=== PATIENT | female | born 1990 | race Caucasian/White ===

== ENCOUNTER 2022-07-23 12:36 | Inpatient (IN) ==
[2022-07-23 13:12] LABS: Appearance Urine Cloudy (Clear); Bacteria Urine Automated 1+ (Negative); Bilirubin Urine 1+ (Negative); Blood Urine Negative (Negative); Color Urine Dark Yellow; Epithelial Cell Urine Auto >30 /lpf (0-5); Glucose Urine UA Negative (Negative); Ketones Urine Trace (Negative); Leukocyte Esterase Urine Trace (Negative); Nitrite Urine Negative (Negative); Protein Urine 1+ (Negative); RBC Urine Automated 0-4 /hpf (0-4); Specific Gravity Urine 1.032 (1.000-1.030); Urobilinogen Urine Negative (Negative)
[2022-07-23] MEDS ORDERED: SODIUM CHLORIDE 0.9% 1000ML 1,000 ML IV ONE (13:56)
[2022-07-23] MEDS ORDERED: ONDANSETRON INJ 2 MG/ML 2 ML VIAL IV STA (13:56)
[2022-07-23] MEDS ORDERED: KETOROLAC TROMETHAMINE 15 MG/ML VIAL IV STA (13:56)
[2022-07-23] MEDS ORDERED: MoRPHine SULFATE 10 MG/ML CARP/VIAL IV STA (13:56)
--- NOTE | 2022-07-23 14:00 | Emergency Department Note ---
Impression & Plan Diffuse abdominal pain, Enteritis, Anemia ED Provider Note NAME: CANDELARIO PEREIRA AGE: 32 SEX: F : 1990 ARRIVES VIA: Walk-In INFORMANT: [Patient][boyfriend] ED PROVIDER(S): [Nadeem Adair MD] CHIEF COMPLAINT: Abdominal pain HISTORY OF PRESENT ILLNESS: The patient is a 32-year-old female presents with 3 days of constant diffuse abdominal pain. The pain at times is a 10/10. The pain worsens with movement. She has had nausea, no vomiting. No diarrhea or vaginal complaints, no urinary complaints, no fever. Patient does have a history of endometriosis. The patient had some pain a week ago that resolved spontaneously, this time, the pain will not seem to go away. She has been using ibuprofen for discomfort. PMHx/PSHx: See Below SOCIAL HISTORY: See Below. PHYSICAL EXAM: GENERAL: Patient is in mild distress from pain. HEENT: No acute trauma, normocephalic atraumatic, mucous membranes moist, no nasal congestion. NECK: No stridor, no adenopathy, no meningismus, trachea is midline. LUNGS: Clear to auscultation bilaterally, no wheeze, no rhonchi, breath sounds equal. HEART: Without murmurs gallops or rubs, regular rate and rhythm. ABDOMEN: Soft but diffusely significantly tender. No distention. EXTREMITIES: No cyanosis or edema, full range of motion of all the joints without pain or difficulty, no signs for acute trauma. NEUROLOGIC: Oriented x 3, no acute motor or sensory deficits, no focal weakness. SKIN: No rash, no jaundice, no diaphoresis. DIFFERENTIAL DIAGNOSIS: Appendicitis, ovarian cyst, endometriosis flare, PID, ovarian torsion, pyelonephritis, UTI, diverticulitis, obstruction, mesenteric ischemia, aortic pathology, inflammatory bowel disease, renal colic, PUD, pancreatitis, biliary pathology, hernia, constipation, as well as other pathologies. EMERGENCY DEPARTMENT COURSE/PROCEDURES: Prior/Outside records reviewed: None MEDICAL DECISION MAKING: There is no leukocytosis. The patient is anemic, no reported rectal bleeding. No old hemoglobin values available for review. There is a normal platelet count. No renal failure or significant electrolyte abnormality. No concerning liver enzyme elevation. No pancreatitis. testing was negative. Urinalysis showed some contamination, no obvious infection. COVID test returned negative. Abdominal and pelvis CT showed enteritis and small bowel inflammation, no bowel obstruction. There was stool seen within the small bowel. On exam, the patient was tearful and quite tender diffusely about the abdomen. She was not febrile. She was not truly toxic. Patient received IV saline, IV morphine and IV Zofran. She was given IV Toradol. The patient does feel improved. Given the discomfort on exam, given the findings on CT imaging, I do think a hospital stay is warranted. I spoke with the patient, I talked to case management, the on-call hospitalist was consulted. Further work-up for this enteritis is needed inpatient. DISPOSITION: Patient's presentation warrants hospital admission. Past Med/Surg History Medical History Endometriosis Opioid dependence Tobacco abuse Surgical History (Updated 07/23/22 @ 17:15 by Pema Crandall PA-C) S/P laparoscopic procedure Fulguration oviducts bilateral 11/22/21 Pt reports hx of 6 lap diagnostic surgeries regarding endometriosis Family History (Updated 07/23/22 @ 17:15 by Pema Crandall PA-C) Sister Cancer Cervical carcinoma Mother Heart disease CAD, multiple stents Social History Smoking Status: Current every day smoker Tobacco Type: Cigarettes packs per day: 1; Hx Alcohol Use: Yes Hx Substance Use: Yes Prescribed Medications: Painkillers Prescribed Med ications Comment: Percocet Preferred Language: Russian Feels Safe at Home: Yes Allergies Allergies Allergy/AdvReac Type Severity Reaction Status Date / Time No Known Allergies Allergy Verified 07/23/22 17:20 Home Meds Home Medications Medication Instructions Recorded Confirmed acetaminophen 500 mg tablet 1,500 mg PO Q6H PRN Pain 07/23/22 07/23/22 (Tylenol Extra Strength) biotin 1 mg tablet 1 mg PO DAILY 07/23/22 07/23/22 buprenorphine HCl 8 mg sublingual 8 mg sublingual DAILY 07/23/22 07/23/22 tablet ibuprofen 600 mg tablet 600 mg PO BID PRN Pain 07/23/22 07/23/22 Results & Data (ED) Vital Signs Vital Signs - 24 hr 07/23/22 12:39 07/23/22 14:26 Temperature 36.9 C Temperature Source Temporal Artery Scan Pulse Rate 87 Pulse Rate [Right Finger] 57 L Pulse Rhythm Regular Pulse Rhythm [Right Finger] Regular Pulse Strength [Right Finger] Normal Respiratory Rate 18 18 Respiratory Effort / Characteristics Non-Labored Spontaneous Non-Labored Spontaneous Respiratory Depth Normal Normal Respiratory Pattern Regular Regular Blood Pressure 134/66 Blood Pressure [Left Arm] 142/72 H Blood Pressure Mean 88 Blood Pressure Mean [Left Arm] 95 Blood Pressure Position Sitting Blood Pressure Position [Left Arm] Sitting Pulse Oximetry 100 98 Oxygen Delivery Method Room Air Room Air Sepsis Recent Fever Within 48 Hours No Sepsis New/Unexplained Change in Mental Status No Sepsis Action Taken by Nursing No Action Required Home Medications Current Medication List: was personally reviewed by me Laboratory Data Attestation: I reviewed the patient's lab results. Result diagrams: 07/23/22 14:26 07/23/22 14:26 Lab Results 07/23/22 07/23/22 07/23/22 Range/Units 12:55 14:26 14:26 WBC 7.49 (4.8-10.8) K/ul RBC 3.76 L (3.93-5.22) M/uL Hgb 9.4 L (12.0-16.0) g/dl Hct 30.3 L (34.1-44.9) % MCV 80.6 (80.0-100.0) fL MCH 25.0 (25.0-34.0) pg MCHC 31.0 L (32.0-36.0) g/dL RDW Std Deviation 45.0 (36.4-46.3) fL RDW Coeff of Kody 15.2 H (11.5-14.5) % Plt Count 218 (130-400) K/uL MPV 10.3 (9.4-12.3) fL Immature Gran % (Auto) 0.4 % Neut % (Auto) 75.4 % Lymph % (Auto) 16.4 % Leake % (Auto) 5.1 % Eos % (Auto) 2.3 % Baso % (Auto) 0.4 % Neut # (Auto) 5.65 (1.4-6.5) K/uL Lymph # (Auto) 1.23 (1.2-3.4) K/uL Leake # (Auto) 0.38 (0.24-0.82) K/uL Eos # (Auto) 0.17 (0-0.50) K/uL Baso # (Auto) 0.03 (0-0.2) K/uL Immature Gran # (Auto) 0.03 H (0.00-0.02) K/uL Sodium 136 (136-145) mmol/L Potassium 4.4 (3.5-5.1) mmol/L Chloride 105 (98-107) mmol/L Carbon Dioxide 27 (21-32) mmol/L Anion Gap 4 (3-11) BUN 8 (6-23) mg/dl Creatinine 0.52 L (0.6-1.2) mg/dl Est Cr Clr Drug Dosing 124.0 ml/min Est GFR ( Amer) 147.6 ml/min Est GFR (Non-Af Amer) 127.3 ml/min BUN/Creatinine Ratio 15.4 (10-20) Glucose 98 (70-99(Fasting)) mg/dl Calcium 8.3 L (8.5-10.1) mg/dl Total Bilirubin 0.3 (0.2-1.0) mg/dl AST 19 (13-39) U/L ALT 17 (7-52) U/L Alkaline Phosphatase 62 (34-104) U/L Total Protein 6.3 (6.0-8.3) gm/dl Albumin 3.5 (3.4-5.0) gm/dl Globulin 2.8 (2.5-4.0) gm/dl Albumin/Globulin Ratio 1.3 (0.9-2) Lipase 9 L (11-82) U/L HCG, Qual (Negative) Urine Color Dark Yellow Urine Appearance Cloudy A (Clear) Urine pH 6.0 (4.5-7.5) Ur Specific [place] 1.032 H (1.000-1.030) Urine Protein 1+ H (Negative) Urine Glucose (UA) Negative (Negative) Urine Ketones Trace H (Negative) Urine Blood Negative (Negative) Urine Nitrite Negative (Negative) Urine Bilirubin 1+ H (Negative) Urine Urobilinogen Negative (Negative) Ur Leukocyte Esterase Trace H (Negative) Urine WBC (Auto) 5-10 H (0-5) /hpf Urine RBC (Auto) 0-4 (0-4) /hpf U Hyaline Cast (Auto) 1-5 (0-5) /lpf U Epithel Cells (Auto) >30 H (0-5) /lpf Urine Bacteria (Auto) 1+ H (Negative) Ur Renal Epithelial Cell Not Reportable SARS-CoV-2, RNA, NAAT (NEGATIVE) 07/23/22 07/23/22 Range/Units 14:26 17:15 WBC (4.8-10.8) K/ul RBC (3.93-5.22) M/uL Hgb (12.0-16.0) g/dl Hct (34.1-44.9) % MCV (80.0-100.0) fL MCH (25.0-34.0) pg MCHC (32.0-36.0) g/dL RDW Std Deviation (36.4-46.3) fL RDW Coeff of Kody (11.5-14.5) % Plt Count (130-400) K/uL MPV (9.4-12.3) fL Immature Gran % (Auto) % Neut % (Auto) % Lymph % (Auto) % Leake % (Auto) % Eos % (Auto) % Baso % (Auto) % Neut # (Auto) (1.4-6.5) K/uL Lymph # (Auto) (1.2-3.4) K/uL Leake # (Auto) (0.24-0.82) K/uL Eos # (Auto) (0-0.50) K/uL Baso # (Auto) (0-0.2) K/uL Immature Gran # (Auto) (0.00-0.02) K/uL Sodium (136-145) mmol/L Potassium (3.5-5.1) mmol/L Chloride (98-107) mmol/L Carbon Dioxide (21-32) mmol/L Anion Gap (3-11) BUN (6-23) mg/dl Creatinine (0.6-1.2) mg/dl Est Cr Clr Drug Dosing ml/min Est GFR ( Amer) ml/min Est GFR (Non-Af Amer) ml/min BUN/Creatinine Ratio (10-20) Glucose (70-99(Fasting)) mg/dl Calcium (8.5-10.1) mg/dl Total Bilirubin (0.2-1.0) mg/dl AST (13-39) U/L ALT (7-52) U/L Alkaline Phosphatase (34-104) U/L Total Protein (6.0-8.3) gm/dl Albumin (3.4-5.0) gm/dl Globulin (2.5-4.0) gm/dl Albumin/Globulin Ratio (0.9-2) Lipase (11-82) U/L HCG, Qual Negative (Negative) Urine Color Urine Appearance (Clear) Urine pH (4.5-7.5) Ur Specific [place] (1.000-1.030) Urine Protein (Negative) Urine Glucose (UA) (Negative) Urine Ketones (Negative) Urine Blood (Negative) Urine Nitrite (Negative) Urine Bilirubin (Negative) Urine Urobilinogen (Negative) Ur Leukocyte Esterase (Negative) Urine WBC (Auto) (0-5) /hpf Urine RBC (Auto) (0-4) /hpf U Hyaline Cast (Auto) (0-5) /lpf U Epithel Cells (Auto) (0-5) /lpf Urine Bacteria (Auto) (Negative) Ur Renal Epithelial Cell SARS-CoV-2, RNA, NAAT NEGATIVE (NEGATIVE) Administered Medications Discontinued Medications Bisacodyl (Bisacodyl 10 Mg Supp) 10 mg MA NOW STA Stop: 07/23/22 17:02 Last Admin: 07/23/22 17:29 Dose: 10 mg Documented By: SARAY Sodium Chloride (Nss 1000ml) 1,000 mls @ 999 mls/hr IV .Q1H1M ONE Stop: 07/23/22 14:56 Last Admin: 07/23/22 14:24 Dose: 999 mls/hr Documented By: DURAN Ioversol (Optiray 320 500ml) 113 ml IV ONCE ONE Stop: 07/23/22 15:23 Last Admin: 07/23/22 15:25 Dose: 113 ml Documented By: DAISY Ioversol (Optiray 350 100ml) 82 ml IV ONCE ONE Stop: 07/23/22 15:39 Last Admin: 07/23/22 15:38 Dose: 82 ml Documented By: DAISY Ketorolac Tromethamine (Ketorolac Tromethamine 15 Mg/Ml Vial) 15 mg IV NOW STA Stop: 07/23/22 13:57 Last Admin: 07/23/22 14:22 Dose: 15 mg Documented By: DURAN Morphine Sulfate (Morphine Sulfate 10 Mg/Ml Carp/Vial) 6 mg IV NOW STA Stop: 07/23/22 13:57 Last Admin: 07/23/22 14:21 Dose: 6 mg Documented By: DURAN Ondansetron HCl (Ondansetron Inj 2 Mg/Ml 2 Ml Vial) 4 mg IV NOW STA Stop: 07/23/22 13:57 Last Admin: 07/23/22 14:21 Dose: 4 mg Documented By: DURAN Imaging Data Radiologist's Impression: Abdomen/Pelvis CT 07/23/22 13:56 CT SCAN OF THE ABDOMEN AND PELVIS WITH IV CONTRAST CLINICAL HISTORY: Generalized abdominal pain. COMPARISON STUDY: No priors. TECHNIQUE: Following the IV administration of 82 cc of Optiray 350, CT scan of the abdomen and pelvis is performed from the lung bases to the proximal femora. Images are reviewed in the axial, sagittal, and coronal planes. IV contrast was administered without complication. A dose lowering technique was utilized adhering to the principles of ALARA. CT DOSE: 272.24 mGy.cm FINDINGS: Lung bases: The heart is normal in size and without pericardial effusion. There are trace pleural effusions with dependent atelectasis. Liver: The contrast-enhanced liver is normal in size, contour, and attenuation. There is no intrahepatic biliary ductal dilatation. The hepatic veins and portal veins are patent. Gallbladder: Unremarkable. Spleen: Normal in size and attenuation. Pancreas: Unremarkable. Adrenal glands: Unremarkable. Kidneys: The contrast enhanced kidneys are normal in size and without hydronephrosis. The kidneys enhance symmetrically. Abdominal vasculature: The abdominal aorta is normal in course and caliber. Bowel: There are significantly thick-walled, edematous, and hyperemic loops of distal small bowel in the pelvis. These loops are distended and fecalized, measuring up to 3.4 cm diameter. There is surrounding infiltration and interloop fluid. There is no transition point or evidence of high-grade obstruction. No organized fluid collection is seen to suggest abscess. The mesenteric vessels appear patent. The appendix is well-visualized and normal. Peritoneum: There is a small volume of abdominopelvic ascites. No intraperitoneal free air is seen. Lymphadenopathy: None. Pelvic viscera: The bladder, uterus, and adnexa are normal as visualized. Involuting follicle is suggested in the left ovary. Skeletal structures: No lytic or blastic lesions are seen. IMPRESSION: 1. There is evidence of a severe nonspecific enteritis involving the distal small bowel, likely on an infectious or inflammatory basis. Specifically, Crohn's disease could have this appearance. Clinical correlation will be required. 2. The small bowel are mildly distended and fecalized, likely representing ileus. There is no transition point identified and no evidence of high-grade obstruction. 3. Small volume abdominopelvic ascites. No intraperitoneal free air is seen. 4. Trace pleural effusions. 5. Additional findings as above. ACT 112: Negative or not required by law. Electronically signed by: Nadeem Woods M.D. 07/23/2022 3:52 PM Discharge Plan Visit Data Chief Complaint: Abdominal Pain Stated Complaint: ABDOMINAL PAIN ED Provider: Nadeem Adair Discharge Problem: Diffuse abdominal pain, Enteritis, Anemia Patient Disposition: Admitted As Inpatient Condition: Fair Forms Stand Alone Forms: [facility], [facility] Emergency Department, Important Visit Information Prescriptions Prescriptions: No Action ibuprofen 600 mg tablet 600 mg PO BID PRN (Reason: Pain) buprenorphine HCl 8 mg tablet, sublingual 8 mg SUBLINGUAL DAILY acetaminophen [Tylenol Extra Strength] 500 mg Tablet 1,500 mg PO Q6H PRN (Reason: Pain) biotin 1 mg Tablet 1 mg PO DAILY Referrals Referrals: PCP,NO [Primary Care Provider] -
[2022-07-23 14:36] LABS: Basophils # (auto) 0.03 K/uL (0-0.2); Basophils % (auto) 0.4 %; Eosinophils # (auto) 0.17 K/uL (0-0.50); Eosinophils % (auto) 2.3 %; Hematocrit (blood only) 30.3 % (34.1-44.9); Hemoglobin 9.4 g/dl (12.0-16.0); Immature Granulocytes # (auto) 0.03 K/uL (0.00-0.02); Immature Granulocytes % (auto) 0.4 %; Lymphocytes # (auto) 1.23 K/uL (1.2-3.4); Lymphocytes % (auto) 16.4 %; Mean Corpuscular Volume 80.6 fL (80.0-100.0); Mean Platelet Volume 10.3 fL (9.4-12.3); Monocytes # (auto) 0.38 K/uL (0.24-0.82); Monocytes % (auto) 5.1 %; Neutrophils # (auto) 5.65 K/uL (1.4-6.5); Neutrophils % (auto) 75.4 %; Platelet Count 218 K/uL (130-400); RDW Coefficient of Variation 15.2 % (11.5-14.5); Red Blood Count 3.76 M/uL (3.93-5.22); White Blood Count 7.49 K/ul (4.8-10.8)
[2022-07-23 14:59] LABS: Pregnancy Test, Serum Negative (Negative)
[2022-07-23 15:03] LABS: Albumin Globulin Ratio 1.3 (0.9-2); Albumin Level 3.5 gm/dl (3.4-5.0); BUN Creatinine Ratio 15.4 (10-20); Bilirubin,Total 0.3 mg/dl (0.2-1.0); Calcium 8.3 mg/dl (8.5-10.1); Est GFR (African American) 147.6 ml/min; Est GFR (Non-African American) 127.3 ml/min; Globulin 2.8 gm/dl (2.5-4.0); Potassium 4.4 mmol/L (3.5-5.1); Total Protein 6.3 gm/dl (6.0-8.3)
[2022-07-23] MEDS ORDERED: OPTIRAY 320 500ml IV ONE (15:22)
[2022-07-23] MEDS ORDERED: OPTIRAY 350 100ml IV ONE (15:38)
--- NOTE | 2022-07-23 15:54 | CT Scan Report ---
CT SCAN OF THE ABDOMEN AND PELVIS WITH IV CONTRAST CLINICAL HISTORY: Generalized abdominal pain. COMPARISON STUDY: No priors. TECHNIQUE: Following the IV administration of 82 cc of Optiray 350, CT scan of the abdomen and pelvi s is performed from the lung bases to the proximal femora. Images are reviewed in the axial, sagittal , and coronal planes. IV contrast was administered without complication. A dose lowering technique wa s utilized adhering to the principles of ALARA. CT DOSE: 272.24 mGy.cm FINDINGS: Lung bases: The heart is normal in size and without pericardial effusion. There are trace pleural eff usions with dependent atelectasis. Liver: The contrast-enhanced liver is normal in size, contour, and attenuation. There is no intrahepa tic biliary ductal dilatation. The hepatic veins and portal veins are patent. Gallbladder: Unremarkable. Spleen: Normal in size and attenuation. Pancreas: Unremarkable. Adrenal glands: Unremarkable. Kidneys: The contrast enhanced kidneys are normal in size and without hydronephrosis. The kidneys enh ance symmetrically. Abdominal vasculature: The abdominal aorta is normal in course and caliber. Bowel: There are significantly thick-walled, edematous, and hyperemic loops of distal small bowel in the pelvis. These loops are distended and fecalized, measuring up to 3.4 cm diameter. There is surrou nding infiltration and interloop fluid. There is no transition point or evidence of high-grade obstru ction. No organized fluid collection is seen to suggest abscess. The mesenteric vessels appear patent . The appendix is well-visualized and normal. Peritoneum: There is a small volume of abdominopelvic ascites. No intraperitoneal free air is seen. Lymphadenopathy: None. Pelvic viscera: The bladder, uterus, and adnexa are normal as visualized. Involuting follicle is sugg ested in the left ovary. Skeletal structures: No lytic or blastic lesions are seen. IMPRESSION: 1. There is evidence of a severe nonspecific enteritis involving the distal small bowel, likely on an infectious or inflammatory basis. Specifically, Crohn's disease could have this appearance. Clinical correlation will be required. 2. The small bowel are mildly distended and fecalized, likely representing ileus. There is no transit ion point identified and no evidence of high-grade obstruction. 3. Small volume abdominopelvic ascites. No intraperitoneal free air is seen. 4. Trace pleural effusions. 5. Additional findings as above. ACT 112: Negative or not required by law. Electronically signed by: Nadeem Woods M.D. 07/23/2022 3:52 PM
[2022-07-23] MEDS ORDERED: bisacodyL 10 MG SUPP PR STA (17:01)
[2022-07-23] MEDS ORDERED: POLYETHYLENE (MIRALAX) 17 GM PACK PO STA (17:01)
[2022-07-23] MEDS ORDERED: Patient's ALLERGY Info needs ENTERED SCH (17:15)
--- NOTE | 2022-07-23 17:31 | History & Physical Report ---
Date of Service July 23, 2022 Assessment & Plan (1) Ileus: (2) Gastroenteritis: (3) Opioid dependence: (4) Endometriosis: (5) Tobacco abuse: Plan: -Admit to MedSurg -Allow patient sips and chips of ice, otherwise n.p.o. -Start D5 +NS@80 mL -Afebrile, white count is 7K, does not appear septic- will obtain blood cultures and lactate now -Initiate Cipro and Flagyl IV for possible GI infection with associated severe enteritis and ileus involving the distal small bowel, small bowel mildly distended and fecalized - reviewed image personally and discussed this with the patient at bedside -Start MiraLAX bowel prep and order Dulcolax suppository x1 now -Consult GI for concern for ? Crohn's disease seen on imaging -May continue Subutex 8 mg daily for pain control, no other narcotics, may also use toradol IV for pain prn - pt previously treated endometriosis with percocet, reports once she was this was switched to subutex and has not had dosage changed in past 5 years. PDMP reviewed personally by myself. Last fill was about 1 week ago. Pt takes this between 11a-noon daily. -Stool PCR -Encourage smoking cessation at bedside, nicotine patch ordered DVTppx: - teds, scds, encourage ambulation CODE: Full code Dispo: From home, likely to remain in the hospital x 1-2 days History of Present Illness Chief Complaint: Abdominal Pain Primary Care Provider: NO PCP This is a 32 yo F with PMhx of endometriosis s/p multiple surgeries, ovarian tube fulguration, hx of percocet use for such on Subutex x 5 years, who presents to the ER with acute onset of abdominal pain. She reports intermittent abdominal pain for the past 10 days, however significantly worsened within the past 24 hours. She notes that she has been eating and drinking okay, was able to drink 4-5 beers on , and admits to alcohol use occasionally. Abdominal pain is significantly worse at this point but improved after receiving pain medications in the ER here. She last took her Subutex earlier this morning when she typically takes it around 11 AM to noon. No recent changes in Subutex dosage. Her last bowel movement was 3 days ago. She denies any prior history of constipation, diarrhea vomiting but does admit to having waves of nausea over the past 3 days. She admits to having 1 fever about a week ago, but denies any other illness type symptoms. She lives at home with her boyfriend. Patient is employed part-time half-brothers. Family history: Mother with CAD, sister with cervical cancer at age 43 alive and well Social history: Smokes 1 pack/day cigarettes x17 years, drinks beer occasionally, denies illicit substance use or IV drug abuse Allergies Allergy/AdvReac Type Severity Reaction Status Date / Time No Known Allergies Allergy Verified 07/23/22 17:20 Home Medications Medication Instructions Recorded Confirmed Type acetaminophen 500 mg tablet 1,500 mg PO Q6H PRN Pain 07/23/22 07/23/22 History (Tylenol Extra Strength) biotin 1 mg tablet 1 mg PO DAILY 07/23/22 07/23/22 History buprenorphine HCl 8 mg sublingual 8 mg sublingual DAILY 07/23/22 07/23/22 History tablet ibuprofen 600 mg tablet 600 mg PO BID PRN Pain 07/23/22 07/23/22 History nicotine 21 mg/24 hr daily 21 mg transdermal QAM 28 days #28 07/25/22 Rx transdermal patch (Nicoderm CQ) ea polyethylene glycol 3350 17 17 g PO DAILY PRN constipation 07/25/22 Rx gram/dose oral powder (Miralax) #119 grams Past Med/Surg History Medical History Endometriosis Opioid dependence Tobacco abuse Surgical History (Updated 07/23/22 @ 17:15 by Pema Crandall PA-C) S/P laparoscopic procedure Fulguration oviducts bilateral 11/22/21 Pt reports hx of 6 lap diagnostic surgeries regarding endometriosis Family History (Updated 07/23/22 @ 17:15 by Pema Crandall PA-C) Sister Cancer Cervical carcinoma Mother Heart disease CAD, multiple stents Social History Smoking Status: Current every day smoker Tobacco Type: Cigarettes packs per day: 1; Hx Alcohol Use: Yes Alcohol type: beer Hx Substance Use: No Preferred Language: Sami Communication Ability: Effective Metal Moulder Required: No Beliefs That Will Affect Care: None Current Living Situation: Family Feels Safe at Home: Yes Assistive Devices: None Review of Systems Review of Systems: Constitutional: As per HPI, 1 fever last week, no sweats or chills Eyes: No diplopia, no worsening or blurred vision ENT: normal hearing, no trouble swallowing Respiratory: No cough, sputum, dyspnea at rest or on exertion Cardiovascular: No chest pain, tightness or palpitations Abdomen: + Sever abdominal pain, +nausea, + constipation, no vomiting or diarrhea Musculoskeletal: No joint pain, calf pain, swelling Neurologic: No weakness, numbness/tingling, or balance problems Psychiatric: No anxiety or depression Skin: No rash or itch Physical Exam Physical Exam: General: awake, alert, no apparent distress, + thin Head: Normocephalic, atraumatic ENT: PERRL, EOMI, no pharyngeal exudate, +mucous membranes dry Chest: Clear to auscultation, on room air, no adventitious breath sounds Cardiac: Regular rate and rhythm, no murmur, no JVD, normal peripheral pulses, good capillary refill Abdominal: Hypoactive BS x 4 quadrants, soft, nondistended, +tender to pal pation diffusely, no rebound or guarding Extremities: Normal inspection, no peripheral edema or erythema, calfs nontender to palpation Psych: Normal mood and affect Neuro: AAO x 3, strength intact bilaterally and rated 5/5, no motor deficits, speech is clear, no peripheral sensory deficits Results & Data Results & Data ([facility]) Vital Signs (Past 12 Hours) Vital Signs Temp Pulse Pulse Resp BP BP Pulse Ox 07/23/22 14:26 57 L 18 142/72 H 98 07/23/22 12:39 36.9 C 87 18 134/66 100 O2 Del Method 07/23/22 14:26 Room Air 07/23/22 12:39 Room Air Laboratory Results 07/23/22 12:55 Urine Culture - Pending Urine,Clean Catch 07/23/22 07/23/22 07/23/22 14:26 14:26 14:26 WBC 7.49 RBC 3.76 L Hgb 9.4 L Hct 30.3 L MCV 80.6 MCH 25.0 MCHC 31.0 L RDW Std Deviation 45.0 RDW Coeff of Kody 15.2 H Plt Count 218 MPV 10.3 Immature Gran % (Auto) 0.4 Neut % (Auto) 75.4 Lymph % (Auto) 16.4 Blair % (Auto) 5.1 Eos % (Auto) 2.3 Baso % (Auto) 0.4 Neut # (Auto) 5.65 Lymph # (Auto) 1.23 Blair # (Auto) 0.38 Eos # (Auto) 0.17 Baso # (Auto) 0.03 Immature Gran # (Auto) 0.03 H Sodium 136 Potassium 4.4 Chloride 105 Carbon Dioxide 27 Anion Gap 4 BUN 8 Creatinine 0.52 L Est Cr Clr Drug Dosing 124.0 Est GFR ( Amer) 147.6 Est GFR (Non-Af Amer) 127.3 BUN/Creatinine Ratio 15.4 Glucose 98 Calcium 8.3 L Total Bilirubin 0.3 AST 19 ALT 17 Alkaline Phosphatase 62 Total Protein 6.3 Albumin 3.5 Globulin 2.8 Albumin/Globulin Ratio 1.3 Lipase 9 L HCG, Qual Negative Urine Color Urine Appearance Urine pH Ur Specific [place] Urine Protein Urine Glucose (UA) Urine Ketones Urine Blood Urine Nitrite Urine Bilirubin Urine Urobilinogen Ur Leukocyte Esterase Urine WBC (Auto) Urine RBC (Auto) U Hyaline Cast (Auto) U Epithel Cells (Auto) Urine Bacteria (Auto) Ur Renal Epithelial Cell 07/23/22 12:55 WBC RBC Hgb Hct MCV MCH MCHC RDW Std Deviation RDW Coeff of Kody Plt Count MPV Immature Gran % (Auto) Neut % (Auto) Lymph % (Auto) Blair % (Auto) Eos % (Auto) Baso % (Auto) Neut # (Auto) Lymph # (Auto) Blair # (Auto) Eos # (Auto) Baso # (Auto) Immature Gran # (Auto) Sodium Potassium Chloride Carbon Dioxide Anion Gap BUN Creatinine Est Cr Clr Drug Dosing Est GFR ( Amer) Est GFR (Non-Af Amer) BUN/Creatinine Ratio Glucose Calcium Total Bilirubin AST ALT Alkaline Phosphatase Total Protein Albumin Globulin Albumin/Globulin Ratio Lipase HCG, Qual Urine Color Dark Yellow Urine Appearance Cloudy A Urine pH 6.0 Ur Specific [place] 1.032 H Urine Protein 1+ H Urine Glucose (UA) Negative Urine Ketones Trace H Urine Blood Negative Urine Nitrite Negative Urine Bilirubin 1+ H Urine Urobilinogen Negative Ur Leukocyte Esterase Trace H Urine WBC (Auto) 5-10 H Urine RBC (Auto) 0-4 U Hyaline Cast (Auto) 1-5 U Epithel Cells (Auto) >30 H Urine Bacteria (Auto) 1+ H Ur Renal Epithelial Cell Not Reportable Diagnostic Findings Abdomen/Pelvis CT 07/23/22 13:56 CT SCAN OF THE ABDOMEN AND PELVIS WITH IV CONTRAST CLINICAL HISTORY: Generalized abdominal pain. COMPARISON STUDY: No priors. TECHNIQUE: Following the IV administration of 82 cc of Optiray 350, CT scan of the abdomen and pelvis is performed from the lung bases to the proximal femora. Images are reviewed in the axial, sagittal, and coronal planes. IV contrast was administered without complication. A dose lowering technique was utilized adhering to the principles of ALARA. CT DOSE: 272.24 mGy.cm FINDINGS: Lung bases: The heart is normal in size and without pericardial effusion. There are trace pleural effusions with dependent atelectasis. Liver: The contrast-enhanced liver is normal in size, contour, and attenuation. There is no intrahepatic biliary ductal dilatation. The hepatic veins and portal veins are patent. Gallbladder: Unremarkable. Spleen: Normal in size and attenuation. Pancreas: Unremarkable. Adrenal glands: Unremarkable. Kidneys: The contrast enhanced kidneys are normal in size and without hydronephrosis. The kidneys enhance symmetrically. Abdominal vasculature: The abdominal aorta is normal in course and caliber. Bowel: There are significantly thick-walled, edematous, and hyperemic loops of distal small bowel in the pelvis. These loops are distended and fecalized, measuring up to 3.4 cm diameter. There is surrounding infiltration and interloop fluid. There is no transition point or evidence of high-grade obstruction. No organized fluid collection is seen to suggest abscess. The mesenteric vessels appear patent. The appendix is well-visualized and normal. Peritoneum: There is a small volume of abdominopelvic ascites. No intraperitoneal free air is seen. Lymphadenopathy: None. Pelvic viscera: The bladder, uterus, and adnexa are normal as visualized. Involuting follicle is suggested in the left ovary. Skeletal structures: No lytic or blastic lesions are seen. IMPRESSION: 1. There is evidence of a severe nonspecific enteritis involving the distal small bowel, likely on an infectious or inflammatory basis. Specifically, Crohn's disease could have this appearance. Clinical correlation will be required. 2. The small bowel are mildly distended and fecalized, likely representing ileus. There is no transition point identified and no evidence of high-grade obstruction. 3. Small volume abdominopelvic ascites. No intraperitoneal free air is seen. 4. Trace pleural effusions. 5. Additional findings as above. ACT 112: Negative or not required by law. Electronically signed by: Nadeem Woods M.D. 07/23/2022 3:52 PM Code Status & VTE Plan Code Status Full code-discussed with patient at bedside Supervising Physician Co-Signing Physician Notes delayed entry date of service noted above Addendum: care coordinated with TYE Alvarez. please refer to her notes for full details, I agree with her notes patient seen and examined, records reviewed by myself as well on exam, patient seen resting in bed, not in distress still has abdominal pain, central/lower abd no active nausea/vomiting, fever/chills no chest pain, dyspnea, palpitations, dizziness no other symptoms VS noted and reviewed oriented x 3, not in distress, speaks in sentences with no effort nor accessory muscle use normal rate, regular rhythm, no murmurs clear breath sounds bilaterally non distended, soft, (+) moderate tenderness lower quadrants no bipedal edema, erythema, warmth no neuro deficits all labs noted and reviewed including below ASSESSMENT AND PLAN diagnoses and plan of care as per TYE Alvarez's notes Attila Wolf MD
[2022-07-23] MEDS: KETOROLAC TROMETHAMINE 15 MG/ML VIAL IV PRN ×2 (18:10→23:12)
[2022-07-23] MEDS: metroNIDAZOLE 500 MG/100 ML BAG IV SCH (19:45)
[2022-07-23] MEDS: D5W AND NSS 1,000 ML IV SCH (19:46)
[2022-07-23] MEDS: ACETAMINOPHEN 1,000 MG/100 ML VIAL IV SCH (19:46)
[2022-07-23] MEDS: NICOTINE 21 MG/24 HR TDSY TD SCH (20:05)
[2022-07-23] MEDS: CIPROFLOXACIN / D5W 400 MG/200 ML BAG IV SCH (22:08)
[2022-07-23] MEDS ORDERED: ONDANSETRON INJ 2 MG/ML 2 ML VIAL IV PRN (23:18)
[2022-07-24] MEDS: ACETAMINOPHEN 1,000 MG/100 ML VIAL IV SCH ×3 (01:25→18:57)
[2022-07-24] MEDS: metroNIDAZOLE 500 MG/100 ML BAG IV SCH ×3 (02:38→19:39)
[2022-07-24] MEDS: CIPROFLOXACIN / D5W 400 MG/200 ML BAG IV SCH ×2 (05:59→16:33)
[2022-07-24] MEDS: KETOROLAC TROMETHAMINE 15 MG/ML VIAL IV PRN ×3 (09:29→22:08)
[2022-07-24] MEDS: NICOTINE 21 MG/24 HR TDSY TD SCH (09:31)
--- NOTE | 2022-07-24 10:04 | Gastrointestinal Consultation ---
Date of Consultation July 24, 2022 Assessment & Plan (1) Enteritis: Discussed with Dr. Blanco. Patient with enteritis of the distal small bowel & ileus. Would approach conservatively. Would advise a fleet enema to improve constipation and if no improvement, could implement Relistor. Would avoid additional narcotic therapy. Would obtain CRP, stool calprotectin, & stool biofire. Can plan for an outpatient colonoscopy when acute picture resolves. Supervising Physician Co-Signing Physician Notes I personally evaluated the patient and agree with the findings as documented by LARA Yepez History of Present Illness Reason for Consultation: Enteritis Attending Physician: Attila Wolf MD History of Present Illness Patient is a 32 yo female with PMH of endometriosis s/p multiple ex-laps, ovarian tube fulguration, & chronic narcotic dependence (on Subutex x 5 years). She presented to [facility] with an onset of abdominal pain. She notes that it had been intermittent mid-abdominal/gilma-umbilical pain x 10 days, but worsened abruptly over the 24 hours prior to admission. She notes she was able to eat a normal diet. She was able to consume alcohol for the holiday. She notes she has not moved her bowels since 07/20/22. She notes she responded to IV narcotics in the ED, but is tearful during my evaluation reporting that she needs more pain medication as her symptoms are severe. A CT scan of the abdomen/pelvis indicated the following: There are significantly thick-walled, edematous, and hyperemic loops of distal small bowel in the pelvis. These loops are distended and fecalized, measuring up to 3.4 cm diameter. There is surrounding infiltration and interloop fluid. There is no transition point or evidence of high-grade obstruction. No organized fluid collection is seen to suggest abscess. The mesenteric vessels appear patent. The appendix is well-visualized and normal. Overall impression suggestive of a severe nonspecific enteritis involving the distal small bowel, likely on an infectious or inflammatory basis. Specifically, Crohn's disease could have this appearance. Clinical correlation will be required. She has no pertinent family history. No diarrhea, rectal bleeding, nausea, or vomiting. She does smoke 1 ppd x 17 years. She has been taking Miralax without a bowel movement and even received a suppository without results. Allergies Allergy/AdvReac Type Severity Reaction Status Date / Time No Known Allergies Allergy Verified 07/23/22 17:20 Home Medications Medication Instructions Recorded Confirmed Type acetaminophen 500 mg tablet 1,500 mg PO Q6H PRN Pain 07/23/22 07/23/22 History (Tylenol Extra Strength) biotin 1 mg tablet 1 mg PO DAILY 07/23/22 07/23/22 History buprenorphine HCl 8 mg sublingual 8 mg sublingual DAILY 07/23/22 07/23/22 History tablet ibuprofen 600 mg tablet 600 mg PO BID PRN Pain 07/23/22 07/23/22 History Patient History Medical History Endometriosis Opioid dependence Tobacco abuse Surgical History (Updated 07/23/22 @ 17:15 by Pema Crandall PA-C) S/P laparoscopic procedure Fulguration oviducts bilateral 11/22/21 Pt reports hx of 6 lap diagnostic surgeries regarding endometriosis Family History (Updated 07/23/22 @ 17:15 by Pema Crandall PA-C) Sister Cancer Cervical carcinoma Mother Heart disease CAD, multiple stents Social History Smoking Status: Current every day smoker Tobacco Type: Cigarettes packs per day: 1; Hx Alcohol Use: Yes Alcohol type: beer Hx Substance Use: No Preferred Language: Burkinan Communication Ability: Effective Rehabilitation Counsellor Required: No Beliefs That Will Affect Care: None Current Living Situation: Family Feels Safe at Home: Yes Safety Concerns: Feels Safe At This Time Assistive Devices: None Review of Systems Constitutional: no fever and no chills Respiratory: no cough and no dyspnea Cardiovascular: no chest pain Gastrointestinal: + abdominal pain and + constipation; no diarrhea/loose s tools Integumentary: no problem reported Psychiatric: no problem reported Hematologic / Lymphatic: no unexplained weight loss Physical Exam Constitutional: WD/WN, vitals as above Respiratory: normal respiratory effort Cardiovascular: Rate/Rhythm: regular rate Gastrointestinal (Abdomen): Inspection/Auscultation: abdomen normal to inspection and normal bowel sounds Percussion/Palpation: + abdomen tender Musculoskeletal: Head/Neck/Chest: normocephalic Psychiatric: Orientation: alert and oriented x 3 Affect: + tearful affect Results & Data ([facility]) Vital Signs (Past 12 Hours) Vital Signs Temp Pulse Resp BP Pulse Ox O2 Del Method 07/24/22 07:23 37.0 C 82 18 114/72 92 Room Air PG Care Time/CCT Total # of Minutes Spent Total Time Spent with Patient: Total time spent is greater than 50% in coordination of care (as documented) at patient's floor/unit and/or counseling patient: Coding Level of Care Code 04888 Inpt Consult Level 4 Diagnoses Enteritis K52.9
[2022-07-24] MEDS: buprenorphine HCL 8 MG SUBL SL SCH (10:43)
--- NOTE | 2022-07-24 13:06 | Hospitalist Progress Note ---
Date of Service July 24, 2022 Assessment & Plan (1) Ileus: (2) Gastroenteritis: Plan: CT abdomen/pelvis: 1. There is evidence of a severe nonspecific enteritis involving the distal small bowel, likely on an infectious or inflammatory basis. Specifically, Crohn's disease could have this appearance. Clinical correlation will be required. 2. The small bowel are mildly distended and fecalized, likely representing ileus. There is no transition point identified and no evidence of high-grade obstruction. 3. Small volume abdominopelvic ascites. No intraperitoneal free air is seen. 4. Trace pleural effusions. 5. Additional findings as above. still having persistent abdominal pain, but afebrile, no nausea/vomiting no guarding GI consulted recommend conservative management Soaps suds enema ordered continue Cipro + Flagyl studies sent- CRP, stool calprotectin, & stool biofire diet advanced to clear liquids continue IV D5 NSS continue Ofirmev 1g q8h, PRN Toradol 15mg q6h continue usual Subutex monitor closely (3) Opioid dependence: Plan: on chronic Subutex for history of endometriosis (4) Endometriosis: (5) Tobacco abuse: Plan: -Encourage smoking cessation at bedside, nicotine patch ordered DVTppx: - teds, scds, encourage ambulation CODE: Full code Dispo: anticipate to return home when medically stable plan of care discussed with patient in detail and at length all questions answered she is understanding, agreeable, comfortable with the plan of care Admission and Anticipated Discharge Date Admission Date: July 23, 2022 Subjective ff up for enteritis, ileus, on chronic suboxone therapy, etc seen resting in bed, not in distress, pleasant but uncomfortable due to persistent upper quadrant pain states pain level is the same as yesterday no BM yet, no flatus no nausea/vomiting, fever/chills no chest pain, dyspnea, palpitations, dizziness no other symptoms Review of Systems Review of Systems: all noted and negative except for above Physical Exam Physical Exam: General- oriented x 3, not in distress, speaks in sentences with no effort or accessory muscle use Eyes- anicteric Neck- no JVD Lungs- clear breath sounds bilaterally, no crackes, no wheezing Heart- normal rate, regular rhythm; no murmurs Abdomen- normal bowel sounds, nondistended, soft, (+) moderate tenderness Upper Quadrants Extremities- no pretibial edema, no calf tenderness Neuro- alert, oriented x 3; no gross focal neurologic deficits Skin- warm & dry Results & Data Results & Data ([facility]) Vital Signs (Past 12 Hours) Vital Signs Temp Pulse Resp BP Pulse Ox O2 Del Method 07/24/22 07:23 37.0 C 82 18 114/72 92 Room Air all noted and reviewed including below
[2022-07-24] MEDS: D5W AND NSS 1,000 ML IV SCH ×2 (13:54→19:48)
[2022-07-24] MEDS ORDERED: METHYLNALTREXONE BROMIDE 12 MG/0.6 ML VIAL SQ SCH (17:00)
[2022-07-24 17:23] LABS: Ferritin 11.1 ng/ml (8-388)
[2022-07-24 20:38] LABS: Albumin Globulin Ratio 1.3 (0.9-2); Albumin Level 3.4 gm/dl (3.4-5.0); Bilirubin,Total 0.3 mg/dl (0.2-1.0); Calcium 8.1 mg/dl (8.5-10.1); Creatinine Clr Calc Pharmacy 113.1 ml/min; Est GFR (African American) 143.2 ml/min; Est GFR (Non-African American) 123.5 ml/min; Globulin 2.6 gm/dl (2.5-4.0); Potassium 4.4 mmol/L (3.5-5.1)
[2022-07-24 21:46] LABS: Basophils # (auto) 0.02 K/uL (0-0.2); Basophils % (auto) 0.3 %; Eosinophils % (auto) 3.1 %; Hematocrit (blood only) 29.7 % (34.1-44.9); Hemoglobin 9.6 g/dl (12.0-16.0); Immature Granulocytes # (auto) 0.04 K/uL (0.00-0.02); Immature Granulocytes % (auto) 0.6 %; Lymphocytes # (auto) 1.48 K/uL (1.2-3.4); Lymphocytes % (auto) 22.7 %; Mean Corpuscular Hemoglobin 25.4 pg (25.0-34.0); Mean Corpuscular Hgb Conc 32.3 g/dL (32.0-36.0); Mean Corpuscular Volume 78.6 fL (80.0-100.0); Mean Platelet Volume 10.5 fL (9.4-12.3); Monocytes # (auto) 0.45 K/uL (0.24-0.82); Monocytes % (auto) 6.9 %; Neutrophils # (auto) 4.32 K/uL (1.4-6.5); Neutrophils % (auto) 66.4 %; Platelet Count 216 K/uL (130-400); RDW Coefficient of Variation 15.3 % (11.5-14.5); RDW Standard Deviation 43.8 fL (36.4-46.3); Red Blood Count 3.78 M/uL (3.93-5.22); White Blood Count 6.51 K/ul (4.8-10.8)
[2022-07-25] MEDS: ACETAMINOPHEN 1,000 MG/100 ML VIAL IV SCH ×2 (01:02→11:03)
[2022-07-25] MEDS: metroNIDAZOLE 500 MG/100 ML BAG IV SCH ×2 (01:03→09:34)
[2022-07-25] MEDS: CIPROFLOXACIN / D5W 400 MG/200 ML BAG IV SCH (04:23)
[2022-07-25] MEDS: D5W AND NSS 1,000 ML IV SCH (04:23)
--- NOTE | 2022-07-25 09:06 | Communication Note ---
Date of Service: July 25, 2022 GI was contacted on 07/24/22 with an update that patient refused enema. Recommendations for Relistor were made and patient received this medication. She did move her bowels on 07/24/22 and 07/25/22. Pending stool studies include a biofire and stool calprotectin. CRP 0.53. Continue bowel regimen. Can utilize Relistor every 2 days while inpatient. Upon discharge she will likely require a bowel regimen of Miralax 17 mg BID. We will await her stool calprotectin (can take 10-14 days) and our office will contact her to arrange outpatient colonoscopy.
[2022-07-25] MEDS: NICOTINE 21 MG/24 HR TDSY TD SCH (09:19)
[2022-07-25] MEDS: buprenorphine HCL 8 MG SUBL SL SCH (11:30)
--- NOTE | 2022-07-25 11:46 | Discharge Summary ---
Date of Service July 25, 2022 Admission HPI Per Admitting Provider This is a 32 yo F with PMhx of endometriosis s/p multiple surgeries, ovarian tube fulguration, hx of percocet use for such on Subutex x 5 years, who presents to the ER with acute onset of abdominal pain. She reports intermittent abdominal pain for the past 10 days, however significantly worsened within the past 24 hours. She notes that she has been eating and drinking okay, was able to drink 4-5 beers on [place], and admits to alcohol use occasionally. Abdominal pain is significantly worse at this point but improved after receiving pain medications in the ER here. She last took her Subutex earlier this morning when she typically takes it around 11 AM to noon. No recent changes in Subutex dosage. Her last bowel movement was 3 days ago. She denies any prior history of constipation, diarrhea vomiting but does admit to having waves of nausea over the past 3 days. She admits to having 1 fever about a week ago, but denies any other illness type symptoms. She lives at home with her boyfriend. Patient is employed part-time half-brothers. Family history: Mother with CAD, sister with cervical cancer at age 43 alive and well Social history: Smokes 1 pack/day cigarettes x17 years, drinks beer occasionally, denies illicit substance use or IV drug abuse Principal Diagnosis Opioid Induced Ileus Distal Small Bowel Enteritis Discharge Exam Appears well, pleasant and comfortable Respiratory Breathing comfortably on room air, no wheezing/rhonchi/rales Cardiovascular Regular Rate and Rhythm Gastrointestinal (Abdomen) Soft, non tender Musculoskeletal No edema Discharge Data Allergies Allergy/AdvReac Type Severity Reaction Status Date / Time No Known Allergies Allergy Verified 07/23/22 17:20 Consultations 07/23/22 16:15 ED Decision to Admit Stat 07/23/22 17:01 Consult Gastroenterology Routine Ordered Studies 07/23/22 13:56 CT Abd and Pelvis [CT abd pelvis IV con only] Stat Hospital Course (1) Ileus: (2) Gastroenteritis: (3) Opioid dependence: on chronic Subutex for history of endometriosis (4) Endometriosis: (5) Tobacco abuse: Ms Cecilia Andrews is a 32 year old female with history of endometriosis and opioid dependence currently on Buprenorphine presents 07/23/2022 with diffuse abd ominal pain. She had a CT Abdomen/pelvis with IV contrast (below) and was seen by GI here. For her ileus, she was recommended an enema but she declined. Instead, she received 1 dose of Relistor 07/24/2022 and subsequently had 2 bowel movements. Her abdominal pain resolved after her BMs. Stool studies (PCR) and fecal calprotectin were ordered but unfortunately stool was not saved. Patient was i nstructed to follow up with GI to have these stool studies done as an outpatient. She will also need to follow up with GI for outpatient colonoscopy. CT abdomen/pelvis: 1. There is evidence of a severe nonspecific enteritis involving the distal small bowel, likely on an infectious or inflammatory basis. Specifically, Crohn's disease could have this appearance. Clinical correlation will be required. 2. The small bowel are mildly distended and fecalized, likely representing ileus. There is no transition point identified and no evidence of high-grade obstruction. 3. Small volume abdominopelvic ascites. No intraperitoneal free air is seen. 4. Trace pleural effusions. 5. Additional findings as above. Total Time Total Time Spent Total Time Spent (In Minutes): 35 Discharge Plan Discharge Items Patient Disposition: Home - Self-Care Reason For Visit: ENTERITIS Discharge Diagnosis: Ileus Enteritis Condition on Discharge: Good Activity: Resume your previous activity Non-emergency contact: Primary Care Provider and Tile Grinder Call non-emergency contact if: you have any medication questions Follow-up/Referrals: Ben Blanco MD [Physician] - Bolivar Knight MD [Outside Practitioners] - (Date & Time 07/31/2022 3:20 PM Provider Bolivar Knight MD Department [facility] ) Diet: Regular Addtl Attending Provider Instructions: You need stool studies to be done, this will need to be done as an outpatient in the next couple of days Please follow up with Gastroenterology to schedule an outpatient Colonoscopy Pending Studies at Discharge: No Stand-Alone Forms: My [employer], Work/School Release, Smoking Cessation Medications and DC Order Prescriptions: New nicotine [Nicoderm CQ] 21 mg/24 hr Patch 24 Hour 21 mg transdermal QAM 28 Days Qty: 28 0RF polyethylene glycol 3350 [Miralax] 17 gram/dose powder 17 g PO DAILY PRN (Reason: constipation) Qty: 119 0RF Continued ibuprofen 600 mg tablet 600 mg PO BID PRN (Reason: Pain) buprenorphine HCl 8 mg tablet, sublingual 8 mg SUBLINGUAL DAILY acetaminophen [Tylenol Extra Strength] 500 mg Tablet 1,500 mg PO Q6H PRN (Reason: Pain) biotin 1 mg Tablet 1 mg PO DAILY Discharge Orders: Discharge Order (Routine); Ordered 07/25/22 Ordered By: Lamar Loredo Admission Data Admit Date/Time: 07/23/22 17:01 Attending Provider: Lamar Loredo Admit Provider: Attila Wolf Primary Care Provider: PCP,NO Other Providers: Ben Blanco ; Attila Wolf
== END 2022-07-25 12:23 | disposition home or self-care (01) | DRG 389 ==
LOC: ED 12:36 → SUATTDRO 17:01 → 3N 17:01